=== PATIENT | female | born 1960 | race Caucasian/White ===

== ENCOUNTER → 2016-06-01 | Outpatient (CLI) | payer OTHER ==
[~2016-06-01] MED LIST: BUPROPION HCL150 M2 PO; COUMADIN5 MG PO; DIAZEPAM PO; GABAPENTIN600 MG PO; NORCO 7.5-3251 EACH PO; OMEPRAZOLE20 M1 PO; PERCOCET 10/3251 TAB PO; REQUIP1 MG PO; SPIRIVA18 MCG INH; SYMBICORT INH; ZOLOFT100 MG PO; ZYRTEC10 M1 PO
[2016-06-01 10:27] LABS: URINE APPEARANCE CLEAR; URINE BILIRUBIN NEG (NEG); URINE BLOOD NEG (NEG); URINE COLOR YELLOW; URINE GLUCOSE NEG (NEG); URINE KETONE NEG (NEG); URINE LEUKOCYTE ESTERASE NEG (NEG); URINE NITRATE NEG (NEG); URINE PH 5.5 (5-8); URINE PROTEIN NEG (NEG); URINE UROBILINOGEN 0.2 MG/DL (NEG)
[2016-06-01 10:28] LABS: HEMATOCRIT 44.2 % (35.0-45.0); HEMOGLOBIN 14.5 gm/dL (12.0-16.0); MEAN CELL VOLUME 87.2 FL (83-96); MEAN CORPUSCULAR HEMOGLOBIN 28.6 PG (28-34); MEAN CORPUSCULAR HGB CONC 32.8 g/dL (30-36); MEAN PLATELET VOLUME 7.7 FL (6.5-11.5); RED BLOOD COUNT 5.07 X10e (3.90-5.30); RED CELL DISTRIBUTION WIDTH 15.9 % (11.0-15.5); WHITE BLOOD COUNT 7.2 X10e3 (4.0-10.5)
[2016-06-01 10:33] LABS: CULTURE INDICATED? NO; URINE SOURCE CLEAN CATCH
[2016-06-01 10:52] LABS: ALKALINE PHOSPHATASE 85 U/L (32-92); ALT (SGPT) 18 U/L (10-40); AST (SGOT) 18 U/L (10-42); BILIRUBIN,TOTAL 0.6 mg/dL (0.2-2.0); BLOOD UREA NITROGEN 12 mg/dL (9-23); BUN/CREATININE RATIO 17.14; CALCIUM SERUM 8.9 mg/dL (8.4-10.2); CARBON DIOXIDE 26 mmol/L (22-31); CHLORIDE 106 mmol/L (100-111); CREATININE SERUM 0.7 mg/dL (0.6-1.4); GLOM FILT RATE Estimated ABOVE60 mL/min (>60); GLUCOSE FASTING 130 mg/dL (70-110); POTASSIUM 3.8 mmol/L (3.5-5.1); PROTEIN TOTAL SERUM 7.4 g/dL (6.0-8.3); SODIUM 138 mmol/L (135-145)
== END | disposition home or self-care (01) ==
LOC: CAMB 09:37
PROVIDERS: Orthopaedic Surgery
DX: Z01.812 Encounter for preprocedural laboratory examination (principal); M17.11 Unilateral primary osteoarthritis, right knee
CPT/HCPCS: 36415; 80053; 81003; 85027; 85610; 86850; 86900; 86901; 87070

== ENCOUNTER 2016-06-08 05:54 | Inpatient (IN) | payer OTHER ==
--- NOTE | ~2016-06-08 | DS ---
Unit #: [id number] #: [id number] Patient: MATILDA OMER [id number] [address] [place], [place] [address] [id number] MR#: [id number] NAME: MATILDA OMER ROOM: [facility] Age: 56 Sex: F Admission Date: 06/08/2016 : 1960 Discharge Date: 06/11/2016 Attending Physician: Romel Campos M.D. Primary Care Physician: Juan Gutiérrez M.D. DISCHARGE SUMMARY ADMITTING DIAGNOSIS Right knee osteoarthritis. DISCHARGE DIAGNOSIS Right knee osteoarthritis. HOSPITAL COURSE On 06/08/2016, Ms. Omer underwent a right total knee arthroplasty. She tolerated the procedure well. She was transported to the 4th floor, where she underwent physical therapy, medical management, and anticoagulation therapy. She is doing well and is ready to be discharged. DISPOSITION Stable at discharge. Discharged to home with [facility] to follow. MEDICATIONS ON DISCHARGE Include routine home medications in addition to Coumadin 5 mg p.o. daily and Percocet 10/325. FOLLOWUP AND INSTRUCTIONS Ms. Omer is going to be discharged home. The patient is on Coumadin for DVT prophylaxis. The PT and INR are to be drawn every Wednesday and . Call the results into [phone], Attn: Deyvi. Skin lucie are to be discontinued 2 weeks postop. Please apply Steri-Strips 1/4 of an inch apart, white CAROL ANN has to be worn during the day and can be removed in the evening. The patient can shower in one week and can drive after seen by Dr. Campos at 6-weeks postop appointment. Physical therapy is to be done for active range of motion, strengthening, and progressive ambulation. The patient has a CPM machine set at 0 to 80 degrees. This should be done twice daily for 2 hours and increase flexion 10 degrees daily. Followup appointment with Dr. Campos is in 6 weeks. Please call our office for that appointment date and time. Dictated by... Ryne Starr/vashti TD: 06/12/2016 12:49 JOB #: [id number] Unit #: [id number] #: [id number] Patient: MATILDA OMER DISCHARGE SUMMARY X Lizbeth Nuñez X DISCHARGE SUMMARY
--- NOTE | ~2016-06-08 | OR ---
Unit #: [id number] #: [id number] Patient: MATILDA OMER [id number] [address] [place], [place] [address] [id number] I MR#: [id number] NAME: MATILDA OMER ROOM: [facility] Date of Procedure: 06/08/2016 Admission Date: 06/08/2016 Surgeon: Romel Campos M.D. : 1960 Attending Physician: Romel Campos M.D. Primary Care Physician: Juan Gutiérrez M.D. OPERATIVE REPORT PREOPERATIVE DIAGNOSIS Primary localized osteoarthritis of the right knee. POSTOPERATIVE DIAGNOSIS Primary localized osteoarthritis of the right knee. PROCEDURE PERFORMED Right total knee. ASSISTANTS Lizbeth Nuñez and Freeman Esqueda. ANESTHESIA Adductor canal block plus general. ESTIMATED BLOOD LOSS 100 mL. INDICATIONS FOR PROCEDURE The patient is a 56-year-old with severe pain in the right knee. The pain limits her walking or standing especially with stairs. She has tried injections and anti-inflammatories with no relief of her discomfort. She is brought to the hospital today for right total knee. X-rays show she has [id number] with subchondral sclerosis. DESCRIPTION OF PROCEDURE The patient was brought to the holding room, given 3 g of Ancef. This will be continued postop, but discontinued within 23 hours the start time of surgery. She was then given an adductor canal block, brought back to the operating room, given a general anesthetic. Tourniquet was placed around the right thigh. The right leg was prepped and draped in a sterile fashion. Tourniquet was inflated to 300. A straight anterior skin incision was made. The subcutaneous dissected away and a medial arthrotomy performed. Patella was slid to the side. Osteophytes were removed from the femur. The intramedullary guide was used and a 6-degree valgus cut was made on the distal femur. The femur was sized using the ATTUNE sizing guide from [employer] and was found to be a size 7. The anterior-posterior cutting block was applied. Rotation was checked in the knee. Anterior and posterior cuts were made along with the chamfer cuts. Proximal tibial cut was made using an external guide and after this was done, the remaining meniscal fragments were debrided. The posterior capsule and periosteal areas on both the tibia and the femur were Unit #: [id number] #: [id number] Patient: MATILDA OMER injected. The trials were applied. The drill holes were made for lugs on the femoral component. The trial tibia was applied. This was a size 6 tibia with a 5 mm insert. The knee came to full extension and good stability in extension and flexion. Rotation of the tibia was marked and the external alignment guide showed appropriate alignment of the limb. The patella was grasped with 2 towel clips, measured 22 mm thick, cut smooth at 13 and a 38 patella was the appropriate size. The 3 drill holes were made. Trial patella applied and it tracked properly. We then removed all the trials, used the drill and punch for the tibial tray. The knee was irrigated and dried while the cement was mixed and then all 3 components were cemented simultaneously. Once again, it was a size 7 ATTUNE femoral component, cruciate retaining, size 6 base plate, and a 38 patella from the ATTUNE Knee System. After the cement had hardened and rest of the ropivacaine mixture was injected, we then opened the 5 mm insert. Applied this to the tibial tray. The knee was reduced. It was stable in all directions. The wound was irrigated and then closed using 0 Ethibond in the arthrotomy, 0 and 2-0 Vicryl in the subcutaneous, and lucie in the skin. volunteer services assistant, Lizbeth Nuñez was present throughout the entire case. Dictated by... Citlalli Gonzalez/vashti TD: 06/08/2016 16:19 JOB #: [id number] OPERATIVE REPORT X Romel Campos MD PROCEDURE OPERATIVE NOTE
--- NOTE | ~2016-06-08 | BMI ---
[facility] Nutrition Therapy DATE: 06/11/16 Patient: MATILDA OMER Physician: CHAPARRO Address: [address] [place] [address] ROAD Room/Bed: [address] [place] [address], Zip: [place] [address] Admit Date: 06/08/16 Date of : 56 Height: 5 4 Weight: 290 131.8 HIGH BMI NOTE: DX: 56 Y.O. FEMALE ADMITTED FOR OA RIGHT KNEE ANTHROPOMETRICS: 5'4", WT: 290# (132 KG), BMI: 49.8 DIET: REGULAR INTERVENTION: 1. REGULAR DIET RECOMMENDATIONS: 1. RECOMMEND TO CHANGE CURRENT DIET ORDER TO CC+HH TO PROMOTE GRADUAL WEIGHT LOSS TOWARDS HEALTHY BMI (19.0-25.0) OR +/-10%IBW RD WILL F/U PER PROTOCOL Respectfully, JORGE SINGH MS, RD, LD Food and Nutritional Services [facility] cc: client file
--- NOTE | ~2016-06-08 | CO ---
Unit #: [id number] #: [id number] Patient: MATILDA OMER [id number] [address] [place], [place] [address] [id number] I MR#: [id number] NAME: MATILDA OMER ROOM: 449 Age: 56 Sex: F Admission Date: 06/08/2016 : 1960 Attending Physician: Romel Campos M.D. Primary Care Physician: Juan Gutiérrez M.D. Consultation Date: 06/08/2016 CONSULTATION REPORT REASON FOR CONSULTATION Postoperative medical management. HISTORY OF PRESENT ILLNESS The patient is a 56-year-old morbidly obese female whom we have been consulted for medical management postop right total knee arthroplasty. The patient is evaluated in room 449. Please note the patient had preadmission testing evaluation at [facility]. She was evaluated and appears initially in November of 2015 and then an addendum was made to the record in April of 2016. At the time of this examination the patient is slightly drowsy but responds appropriately to questions and follows commands. She complains of postoperative right knee pain 6/10 on a pain scale. She denies nausea, vomiting, shortness of breath, chest pain or arm, neck or jaw pain. She is concerned regarding history of overactive bladder and is anxious about the use of the bedpan at this point. She states she is hungry. Her daughter and , who is deaf, are at the bedside. Jenae, mineral economist, was present during this visit. PAST MEDICAL HISTORY (per review of office records from [facility]) 1. Rheumatoid arthritis. 2. Osteoarthritis. 3. Obstructive sleep apnea with CPAP use. 4. COPD. 5. Tobacco use. 6. Morbid obesity with BMI of 49. 7. Anxiety and depression. 8. Degenerative disk disease. 9. Allergic rhinitis. 10. Restless leg syndrome. PAST SURGICAL HISTORY 1. D and C after miscarriage. 2. Bladder repair. 3. Umbilical hernia repair. 4. Partial hysterectomy. 5. Left rotator cuff repair. 6. Left knee arthroplasty. 7. Bilateral cataract extraction. ALLERGIES No known drug allergies. HOME MEDICATIONS Unit #: [id number] #: [id number] Patient: OMER,MATILDA 1. Spiriva 1 inhalation daily. 2. Symbicort 160 mcg/4.5 mcg 2 puffs inhaled b.i.d. 3. Zoloft 100 mg p.o. at bedtime. 4. Omeprazole 20 mg p.o. daily. 5. Valium 5 mg p.o. b.i.d. 6. Gabapentin 600 mg p.o. t.i.d. 7. Zyrtec 10 mg p.o. daily. 8. Bupropion HCL SR 150 mg p.o. daily. 9. Requip 4 mg p.o. at bedtime. 10. Delano 7.5/325 mg tab 1 p.o. q.6 hours p.r.n. pain. SOCIAL HISTORY Per review of admission records today, the patient smokes 6 cigarettes a day, although there is conflicting information that she was a former smoker. She consumes alcohol socially and denies illicit drug use. FAMILY HISTORY Per review of Dr. Campos's office note, father had diabetes, hypertension and cancer. Mother had hypertension, high cholesterol and cancer. REVIEW OF SYSTEMS Complains of postop right knee pain 6/10 on a pain scale. Denies nausea. Has had no vomiting. Feels hungry. A 10-point review of systems was conducted and otherwise negative except as indicated under history of present illness above. PHYSICAL EXAMINATION GENERAL: A 56-year-old morbidly obese female. Awake. Closes eyes. Status post (1) sedation and anesthesia in the O.R. status post PACU. Responds to questions appropriately and follows commands. VITAL SIGNS: Temperature pending. Vital signs stable. HEENT: Atraumatic, normocephalic. Sclerae anicteric. No discharge from eyes, ears or nares. Nasal cannula in nares with O2 at 2 liters per minute. LYMPH: No preauricular, postauricular, tonsillar, submental, anterior or posterior cervical adenopathy. ENDOCRINE: No thyromegaly, thyroid nodules or tenderness. RESPIRATORY: Clear to auscultation in all young bilaterally without wheezes, rhonchi or rales. CARDIOVASCULAR: S1, S2. Regular rate and rhythm without murmur or rub. GI: Bowel sounds positive x4. Soft, nontender, nondistended. EXTREMITIES: Right lower extremity LO wrap clean, dry along entire length. No lower extremity edema. MUSCULOSKELETAL: Strength 5/5 all extremities bilaterally to flexion and extension. NEUROLOGIC: Alert to person, time, situation and location. Speech clear. Strength 5/5 all extremities bilaterally flexion and extension. DIAGNOSTIC STUDIES LABORATORY: PT-INR collected this morning preoperatively - PT 10.2, INR 1. Urinalysis completely negative with neither microscopic nor culture indicated. IMAGING: Review of radiology report, exam date 05/08/16. Impression - No active disease is seen in the chest. CARDIOLOGY: Twelve-lead EKG performed 11/2015. Impression - Sinus rhythm, Unit #: [id number] #: [id number] Patient: MATILDA OMER borderline T abnormalities anterolateral leads. IMPRESSION 1. The patient is a 56-year-old female who is postop for right total knee arthroplasty. Postoperative orthopedic management will be per Dr. Campos, the patient's attending physician. 2. Obstructive sleep apnea. The patient has CPAP from home, which the respiratory therapist will set up on home settings for her to use while asleep. She is also placed on BRENT protocol. 3. Morbid obesity, BMI 49. 4. GERD. Will continue home dose of omeprazole. 5. Tobacco use/COPD. If needed, the patient will be ordered a nicotine transdermal patch should she have nicotine withdrawal symptoms. She has orders for albuterol Mini-Neb q.2 hours p.r.n. shortness of air and DuoNeb q.i.d. p.r.n. shortness of air. 6. Asthma. Stable. Inhaled bronchodilators as needed. 7. Overactive bladder. 8. Degenerative disk disease. Continue current medications. Pain management per Dr. Campos. 9. Depression and anxiety. Continue bupropion, Zoloft. Valium p.r.n. if allowed per BRENT protocol. Will hold for sedation. 10. Allergic rhinitis. Continue cetirizine control. 11. Restless leg syndrome. 12. Rheumatoid arthritis. The patient is not established with a teletypesetter monitor. She is not on any DMARDs at this time. Thank you for allowing us to participate in the care of this patient. We will follow her postoperatively for medical management. Dictated by... Nasir MatthewsP.R.N. for Citlalli Maldonado TD: 06/08/2016 13:37 JOB #: [id number] CONSULTATION REPORT X Roopa Chinchilla APRN CONSULTATION REPORT
[~2016-06-08 05:54] MED LIST changes: -COUMADIN5 MG PO; -PERCOCET 10/3251 TAB PO
[2016-06-08 06:56] LABS: PROTHROMBIN TIME (PATIENT) 10.2 SECONDS (9.6-11.5)
[2016-06-09 02:59] LABS: HEMATOCRIT 38.6 % (35.0-45.0); HEMOGLOBIN 12.3 gm/dL (12.0-16.0)
[2016-06-09 03:23] LABS: BLOOD UREA NITROGEN 12 mg/dL (9-23); CARBON DIOXIDE 28 mmol/L (22-31); CHLORIDE 100 mmol/L (100-111); CREATININE SERUM 0.8 mg/dL (0.6-1.4); GLOM FILT RATE Estimated ABOVE60 mL/min (>60); GLUCOSE FASTING 153 mg/dL (70-110); MAGNESIUM 2.1 mg/dL (1.6-3.0); POTASSIUM 3.8 mmol/L (3.5-5.1); SODIUM 135 mmol/L (135-145)
[2016-06-09 04:12] LABS: INR 1.4; PROTHROMBIN TIME (PATIENT) 14.6 SECONDS (9.6-11.5)
[2016-06-10 04:29] LABS: HEMATOCRIT 36.9 % (35.0-45.0); HEMOGLOBIN 11.9 gm/dL (12.0-16.0)
[2016-06-10 04:45] LABS: INR 1.8; PROTHROMBIN TIME (PATIENT) 19.4 SECONDS (9.6-11.5)
[2016-06-10 05:01] LABS: BLOOD UREA NITROGEN 12 mg/dL (9-23); CALCIUM SERUM 8.2 mg/dL (8.4-10.2); CARBON DIOXIDE 29 mmol/L (22-31); CHLORIDE 105 mmol/L (100-111); CREATININE SERUM 0.6 mg/dL (0.6-1.4); GLOM FILT RATE Estimated ABOVE60 mL/min (>60); GLUCOSE FASTING 164 mg/dL (70-110); MAGNESIUM 2.2 mg/dL (1.6-3.0); POTASSIUM 3.8 mmol/L (3.5-5.1); SODIUM 141 mmol/L (135-145)
[2016-06-11 04:23] LABS: INR 2.4; PROTHROMBIN TIME (PATIENT) 25.7 SECONDS (9.6-11.5)
[2016-06-11 04:33] LABS: BLOOD UREA NITROGEN 12 mg/dL (9-23); BUN/CREATININE RATIO 17.14; CALCIUM SERUM 8.1 mg/dL (8.4-10.2); CARBON DIOXIDE 32 mmol/L (22-31); CHLORIDE 102 mmol/L (100-111); CREATININE SERUM 0.7 mg/dL (0.6-1.4); GLOM FILT RATE Estimated ABOVE60 mL/min (>60); GLUCOSE FASTING 105 mg/dL (70-110); MAGNESIUM 2.1 mg/dL (1.6-3.0); POTASSIUM 4.2 mmol/L (3.5-5.1); SODIUM 140 mmol/L (135-145)
[2016-06-11] MEDS ORDERED: COUMADIN5 MG PO (12:46)
[2016-06-11] MEDS ORDERED: PERCOCET 10/3251 TAB PO (12:46)
== END 2016-06-11 15:25 | disposition home health service (06) | DRG 470 ==
LOC: CSUR 05:54 → CPACUOF 07:00 → C4B 11:30
PROVIDERS: Nurse Practitioner; Orthopaedic Surgery
PROC: 0SRC0J9 Replacement of Right Knee Joint with Synthetic Substitute, Cemented, Open Approach (ICD-10-PCS; principal; 2016-06-08 09:00)
DX: M17.11 Unilateral primary osteoarthritis, right knee (principal); Z68.42 Body mass index [BMI] 45.0-49.9, adult; Z90.711 Acquired absence of uterus with remaining cervical stump; Z96.652 Presence of left artificial knee joint; Z98.42 Cataract extraction status, left eye; Z98.41 Cataract extraction status, right eye; Z87.891 Personal history of nicotine dependence; M06.9 Rheumatoid arthritis, unspecified; J44.9 Chronic obstructive pulmonary disease, unspecified; F41.9 Anxiety disorder, unspecified; M50.30 Other cervical disc degeneration, unspecified cervical region; M51.36 Other intervertebral disc degeneration, lumbar region; M79.7 Fibromyalgia; G47.33 Obstructive sleep apnea (adult) (pediatric); E66.01 Morbid (severe) obesity due to excess calories; F32.9 Major depressive disorder, single episode, unspecified; G25.81 Restless legs syndrome; K21.9 Gastro-esophageal reflux disease without esophagitis; J45.909 Unspecified asthma, uncomplicated; R73.9 Hyperglycemia, unspecified; T38.0X5A Adverse effect of glucocorticoids and synthetic analogues, initial encounter; R06.89 Other abnormalities of breathing
CPT/HCPCS: 80048; 83735; 85014; 85018; 85610; 85730; 94010; 94640; 94664; 94760; 94761; 97110; 97116; 97162; 97165; 97530; 97535; C1776; J0131; J0171; J0690; J0735; J1100; J1170; J1650; J1885; J2250; J2270; J2405; J2795; J3010